=== PATIENT | male | born 1960 | race Caucasian/White ===

== ENCOUNTER 2021-05-04 15:25 | Emergency (ER) | payer BC, OTHER ==
[~2021-05-04] VITALS: Ht 172.7 cm; Wt 86.2 kg
[2021-05-04 16:00] LABS: CALCIUM 8.5 mg/dL (8.5-10.1); CREATININE 1.1 mg/dL (0.7-1.3)
[2021-05-04 16:01] LABS: ABSOLUTE NEUTROPHILS 5.8 thou/uL (1.4-8.2); BASOPHILS 0.8 % (0.0-2.0); EOSINOPHILS 2.1 % (0.0-3.0); HEMATOCRIT 47.2 % (42.0-52.0); HEMOGLOBIN 15.9 gm/dL (14.0-18.0); LYMPHOCYTES 18.2 % (24.0-44.0); MCH 31.9 pg (26.0-34.0); MCHC 33.7 g/dL (28.0-37.0); MCV 94.7 fL (80.0-100.0); MONOCYTES 7.6 % (1.0-8.0); PLATELET COUNT 238 thou/uL (150-400); POLYS 71.3 % (36.0-66.0); RBC 4.99 mil/uL (4.50-6.00); RDW 13.2 % (10.5-14.5); WBC 8.1 thou/uL (4.0-11.0)
[2021-05-04 16:10] LABS: ALBUMIN 3.9 g/dL (3.4-5.0); TOTAL BILIRUBIN 0.7 mg/dL (0.2-1.0); TOTAL PROTEIN 7.2 g/dL (6.4-8.2)
[2021-05-04 18:56] VITALS: BP 166/94
--- NOTE | 2021-05-05 07:24 | EKG ---
[address] [address] ELECTROCARDIOGRAM REPORT Name: SALMONFARIDEH Room #: DEP MARSHAL Miguel#: [id number] Admission: 05/04/21 Attend Phys: Discharge: 05/04/21 Date of : 58 Report #: [id number] [facility] ED Test Date: 2021-05-04 Test Time: 15:49:23 Pat Name: FARIDEH SALMON Department: Room: Gender: Control Systems Technician: benoit : 1960 Requested By: Fede Knutson Order Number: [id number] MD: Simone Vásquez Measurements Intervals [place] Rate: 70 P: 50 GA: 138 QRS: 4 QRSD: 97 T: 51 QT: 422 QTc: 456 Interpretive Statements Sinus rhythm Left atrial enlargement No previous ECG available for comparison Electronically Signed On 05-05-2021 7:23:50 ARCHITECTURAL SUPERINTENDENT by Simone Vásquez [email or web address] <ELECTRONICALLY SIGNED> By: Simone Vásquez MD, [facility] 05/05/21 0723 1549 1549 Simone Vásquez MD, FACC /EPI
== END 2021-05-04 18:56 | disposition home or self-care (01) ==
LOC: ER 15:25
PROVIDERS: Emergency Medicine
DX: S93.121A Dislocation of metatarsophalangeal joint of right great toe, initial encounter (principal); S20.212A Contusion of left front wall of thorax, initial encounter; R10.12 Left upper quadrant pain; W11.XXXA Fall on and from ladder, initial encounter; Y93.89 Activity, other specified; Y92.89 Other specified places as the place of occurrence of the external cause; Y99.9 Unspecified external cause status